=== PATIENT | male | born 1955 | race Caucasian/White ===

== ENCOUNTER → 2024-04-22 | Outpatient (CLI) | payer MEDICARE, SELFPAY ==
--- NOTE | 2024-04-22 13:16 | MRI_ITS ---
STUDY: MR PROSTATE GLAND/ PELVIS WITH T WITHOUT CONTRAST REASON FOR EXAM: Male, 69 years old. ELEVATED PSA, METASTATIC DISEASE EVAL, PSA 22.3 TECHNIQUE: Standardized fat and water weighted pulse sequences were obtained in all 3 orthogonal planes, pre-and post contrast administration. 12 CC IV CLARISCAN was administered for the contrast portion of the examination. COMPARISON: None. FINDINGS: Prostate gland volume/size: 5.32 x 3.42 x 4.80 cm which is mildly to moderately enlarged. Anterior fibromuscular stroma: Normal Peripheral zone: Normal right peripheral zone. Small low density 6.2 mm nodule is present in the middle one third aspect of the left peripheral zone see image 27/40 series 5 on the postcontrast images image 18/32 series 12 this nodule demonstrates diffuse enhancement. The nodule is also bright on the diffusion-weighted sequence and dark on the ADC map indicating high probability of malignancy. Central zone: Diffusely heterogeneous and nodular. Features of prostatic hyperplasia Transitional zone: Diffusely heterogeneous and nodular. Features of prosthetic hyperplasia Prostate capsule: Intact Seminal vesicles: Normal Pelvic sidewall lymphadenopathy: None demonstrated Bony structures: No marrow edema or lytic or blastic lesions or abnormal enhancement. Normal urinary bladder. Normal visualized small intestine. Normal visualized colon. There is no pelvic fluid. There is no pelvic mass lesion or lymphadenopathy. Normal abdominal wall. MRI/Pelvis W/WO Contrast IMPRESSION: 1. Small low density 6.2 mm nodule is present in the middle one third aspect of the left peripheral zone see image 27/40 series 5 on the postcontrast images image 18/32 series 12 this nodule demonstrates diffuse enhancement. The nodule is also bright on the diffusion-weighted sequence and dark on the ADC map indicating high probability of malignancy. 2. PI-RADS 4: high (clinically significant cancer is likely to be present) Reference information: Normal prostate tissue Benign prostatic hypertrophy cancer/tumor - low signal peripheral , transitional, and central zones malignancy appears as bright on DWI and low signal on ADC map Prostate imaging-reporting and data system (PI-RADS) PI-RADS 1: very low (clinically significant cancer is highly unlikely to be present) PI-RADS 2: low (clinically significant cancer is unlikely to be present) PI-RADS 3: intermediate (the presence of clinically significant cancer is equivocal) PI-RADS 4: high (clinically significant cancer is likely to be present) PI-RADS 5: very high (clinically significant cancer is highly likely to be present) PI-RADS X: component of exam technically inadequate or not performed Prostate malignancy distribution: Peripheral zone: 70-80% Transitional zone: 10-20% Central zone: 5% or less Electronically Signed: Rainer Nails MD at 10:40 EDT ,
[2024-04-22 13:51] LABS: CREATININE FINGERSTICK < 1.0 mg/dL (0.70-1.30); EGFR FINGERSTICK > 60.0000 mL/min (>60)
== END | disposition home or self-care (01) ==
PROVIDERS: PCP Family Medicine; Referring Provider Urology; Visit Provider Urology
DX: R97.20 Elevated prostate specific antigen [PSA] (principal)
CPT/HCPCS: 36415; 72197; 84153; A9575

== ENCOUNTER → 2024-05-15 | Outpatient (CLI) | payer MEDICARE, SELFPAY ==
--- NOTE | 2024-05-15 | PROSBIL_PTH ---
PATIENT: CHU GRULLON LOC: [facility] U#:[id number] AGE/SX: 69/M ROOM: RE05/15/[address]: Dr. Dwain Castillo MD : 1955 BED: DIS: 05/15/2024 SPEC #: [id number] RECD: 05/16/24 09:16 STATUS: CHARLIE RE[place]ban #: [id number] TONEY: 05/15/24 00:[address]: Dwain Castillo DEPT: SURGICAL PATHOLOGY RECD BY: Jaren Farley ENTERED: 05/16/24 09:17 SP TYPE: PROST BX JAIR DR: Dr. Elias Dudley MD Tissues: A - PROSTATE RIGHT B - PROSTATE RIGHT C - PROSTATE RIGHT D - PROSTATE LEFT E - PROSTATE LEFT F - PROSTATE LEFT Procedures: PROSTATE BX HEADER OPERATION: Prostate biopsy PRE-OP DIAGNOSIS: Elevated PSA TISSUE SUBMITTED: A - Right apex, B - Right mid, C - Right base, D - Left apex, E - Left mid, F - Left base MICROSCOPIC DIAGNOSIS A. Right prostate, apex, core biopsy: Prostatic tissue, negative for malignancy. Focal mild acute and chronic inflammation. B. Right prostate, mid, core biopsy: Prostatic tissue, negative for malignancy. Focal atrophy and chronic inflammation. C. Right prostate, base, core biopsy: Prostatic adenocarcinoma. [place] grade: 3+4=7 Number of cores involved: 1/2 Proportion of tissue involved: ~10% Perineural invasion: Not identified. Greatest tumor length: 0.2 cm Focal atypical small acinar proliferation (JAKE). See comment. D. Left prostate, apex, core biopsy: Prostatic tissue, negative for malignancy. E. Left prostate, mid, core biopsy: Prostatic tissue, negative for malignancy. F. Left prostate, base, core biopsy: Prostatic tissue, negative for malignancy. SJ/mr 05/19/2024 COMMENT C. Immunohistochemistry ([id number]) supports the above diagnosis. MICROSCOPIC DESCRIPTION Slides are reviewed. GROSS DESCRIPTION A - Received is one container designated prostate, right apex. The specimen consists of two elongated fragments of light guajardo-white soft tissue each measuring 1.6 cm in length and 0.1 cm in diameter. The specimen is totally submitted in one cassette. B - Received is one container designated prostate, right mid. The specimen consists of two elongated fragments of light guajardo-white soft tissue each measuring 1.6 cm in length and 0.1 cm in diameter. The specimen is totally submitted in one cassette. C - Received is one container designated prostate, right base. The specimen consists of two elongated fragments of light guajardo-white soft tissue measuring 0.9 and 1.3 cm in length and 0.1 cm in diameter. The specimen is totally submitted in one cassette. D - Received is one container designated prostate, left apex. The specimen consists of two elongated fragments of light guajardo-white soft tissue measuring 1.1 and 1.5 cm in length and 0.1 cm in diameter. The specimen is totally submitted in one cassette. E - Received is one container designated prostate, left mid. The specimen consists of two elongated fragments of light guajardo-white soft tissue each measuring 1.3 cm in length and 0.1 cm in diameter. The specimen is totally submitted in one cassette. F - Received is one container designated prostate, left base. The specimen consists of two elongated fragments of light guajardo-white soft tissue measuring 0.7 and 1.5 cm in length and 0.1 cm in diameter. The specimen is totally submitted in one cassette. / SJ/mr 05/16/2024 TC:0 CPT: G0146
--- NOTE | 2024-05-15 | IMM_PTH ---
PATIENT: CHU GRULLON LOC: [facility] U#:[id number] AGE/SX: 69/M ROOM: RE05/15/[address]: Dr. Dwain Castillo MD : 1955 BED: DIS: 05/15/2024 SPEC #: [id number] RECD: 05/19/24 11:39 STATUS: CHARLIE REQ #: [id number] TONEY: 05/15/24 00:[address]: Dwain Castillo DEPT: IMMUNOHISTOCHEMISTRY RECD BY: Gen Costello ENTERED: 05/19/24 11:39 SP TYPE: IMMUNO OTHR DR: Dr. Elias Dudley MD Tissues: C - PROSTATE RIGHT Procedures: 34BE12 (add) P40 (initial) PHYSICIAN & INSTITUTION [place] [id number] SPECIMEN INFORMATION: Tissue Source: C- Prostate right base Clinical Info: Elevated PSA Specimen Number: [id number] CPT code: 33110,37357 METHODOLOGY: Deparaffinized sections of prefer/formalin-fixed tissue or PAP/DQ stained slides are incubated with monoclonal/polyclonal antibodies/oligonucleotide probes. Localization is made via biotin free immunoperoxidase method. Appropriate controls are performed and reacted as expected. Results on target cell population are indicated in the following table: RESULTS: ANTIBODY / CLONE RESULT Block C P40 (BC28) negative 34BE12 (34BE12) negative These tests were developed and their performance characteristics determined by [facility]. They may not have been cleared or approved by the [place]. Food and Drug Administration. The FDA has determined that such clearance or approval is not necessary. The above immunohistochemical/dualISH markers are ordered and reviewed by the Pathologist. INTERPRETATION: C. Prostate, right base, core biopsy: Adenocarcinoma. Focal atypical small acinar proliferation (JAKE). ASH/ 05/20/2024
== END | disposition home or self-care (01) ==
LOC: LABSPEC 13:56
PROVIDERS: PCP Family Medicine; Referring Provider Urology; Visit Provider Urology
DX: C61 Malignant neoplasm of prostate (principal); R97.20 Elevated prostate specific antigen [PSA]
CPT/HCPCS: 88305; 88341; 88342; G0416

== ENCOUNTER → 2025-01-12 | Outpatient (CLI) | payer MEDICARE, SELFPAY ==
[2025-01-12 12:02] LABS: PSA,Total- Diagnostic 5.27 ng/mL (0.00-4.00)
== END | disposition home or self-care (01) ==
PROVIDERS: PCP Family Medicine; Referring Provider Urology; Visit Provider Urology
DX: C61 Malignant neoplasm of prostate (principal)
CPT/HCPCS: 36415; 84153

== ENCOUNTER → 2025-07-27 | Outpatient (CLI) | payer MEDICARE, SELFPAY ==
[2025-07-27 11:09] LABS: PSA,Total- Diagnostic 4.85 ng/mL (0.00-4.00)
== END | disposition home or self-care (01) ==
PROVIDERS: PCP Family Medicine; Referring Provider Nurse Practitioner; Visit Provider Nurse Practitioner
DX: C61 Malignant neoplasm of prostate (principal)
CPT/HCPCS: 36415; 84153